=== PATIENT | male | born 1950 | race Caucasian/White ===

== ENCOUNTER → 2017-03-07 | Outpatient (CLI) | payer MEDICARE ==
--- NOTE | 2017-03-07 16:02 | CT ---
EXAMINATION TYPE: CT elbow RT wo con DATE OF EXAM: 03/07/2017 3:03 PM COMPARISON: NONE HISTORY: Patient has old sport injury to right elbow, now pain CT DLP: 324 mGycm Automated exposure control for dose reduction was used. FINDINGS: Soft tissues appear unremarkable. The several small ossifications within the joint space between the ulna and humerus. These are smooth bordered and best visualized in the axial plane. The radius aligns normally with the humerus. There is loss of joint space between the humerus and the radial head compatible some degenerative change. S purring is on the humerus. Three-D reconstructed images performed separately on the [employer] computer by the technologist are film ed and presented. IMPRESSION: 1. [id number] DEGENERATIVE CHANGES WITHIN THE ELBOW. 2. THERE MAY BE A FEW SMALL FREE OSSEOUS BODIES WITHIN THE JOINT SPACE ALTHOUGH ONLY IDENTIFIED IN TH E SINGLE PLANE OF SECTION
== END ==
LOC: RADCTMAIN 13:44
PROVIDERS: ATTEND Orthopaedic Surgery
DX: M19.021 Primary osteoarthritis, right elbow (principal)